=== PATIENT | male | born 1985 | race African-American/Black ===

== ENCOUNTER 2016-11-22 19:58 | Emergency (ER) | payer OTHER ==
[~2016-11-22] VITALS: Ht 175.3 cm; Wt 71.2 kg
[~2016-11-22 19:58] MED LIST: FRESHKOTE15 ML OPH
[2016-11-22 20:22] VITALS: BP 132/77
--- NOTE | 2016-11-22 21:41 | ED GI/GU/ABDOMINAL COMPLAINT ---
History of Present Illness General Chief Complaint: Male Genitourinary Problems Stated Complaint: GROIN PAIN Vital Signs & Intake/Output Vital Signs & Intake/Output Vital Signs Date Time Temp Pulse Resp B/P Pulse O2 O2 Flow FiO2 Ox Delivery Rate 11/22 2021 98.8 75 18 132/77 100 Room Air Allergies Coded Allergies: No Known Allergies (03/23/16) Reconcile Medications Eye Lubricant Combination No.1 (Freshkote) 15 ML DROPS 1 GTT OPH TID irritation eye Triage Note: PT TO ED FOR PENILE PAIN, DENIES ANY DRAINAGE, SORES OR RECENT UNPROTECTED SEX. 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
--- NOTE | 2016-11-22 21:58 | ED GI/GU/ABDOMINAL COMPLAINT ---
History of Present Illness General Chief Complaint: Male Genitourinary Problems Stated Complaint: GROIN PAIN Source: patient Exam Limitations: no limitations Vital Signs & Intake/Output Vital Signs & Intake/Output Vital Signs Date Time Temp Pulse Resp B/P Pulse O2 O2 Flow FiO2 Ox Delivery Rate 11/22 2021 98.8 75 18 132/77 100 Room Air ED Intake and Output 11/23 0000 11/22 1200 Intake Total Output Total Balance Patient 157 lb Weight Allergies Coded Allergies: No Known Allergies (03/23/16) Reconcile Medications Eye Lubricant Combination No.1 (Freshkote) 15 ML DROPS 1 GTT OPH TID irritation eye Triage Note: PT TO ED FOR PENILE PAIN, DENIES ANY DRAINAGE, SORES OR RECENT UNPROTECTED SEX. Triage Nurses Notes Reviewed? yes Onset: Abrupt Duration: day(s): (1) Timing: recent history Quality/Severity: mild No Modifying Factors: none HPI: 31-year-old male comes into emergency room for evaluation of pain to the base of his penis. Patient reports that yesterday morning he woke up with an erection in his left arm hit his penis and he felt the pain. Denies any bruising. Patient reports she's been able to get an erection since then. Denies any burning with urination or urethral discharge. He just wanted to have it checked out to see was concerned. Pain is very mild. (LORRAINE AVERY) Past History Travel History Traveled to [place] past 21 day No Medical History Any Pertinent Medical History? 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 No (LORRAINE AVERY) Review of Systems Review of Systems Constitutional: Reports: no symptoms. EENTM: Reports: no symptoms. Respiratory: Reports: no symptoms. Cardiovascular: Reports: no symptoms. GI: Reports: no symptoms. Genitourinary: Reports: see HPI. Musculoskeletal: Reports: no symptoms. Skin: Reports: no symptoms. Neurological/Psychological: Reports: no symptoms. Hematologic/Endocrine: Reports: no symptoms. Immunologic/Allergic: Reports: no symptoms. All Other Systems: Reviewed and Negative (LORRAINE AVERY) Physical Exam Physical Exam General Appearance: well developed/nourished, no apparent distress, alert Head: atraumatic, normal appearance Eyes: Bilateral: normal appearance. Ears, Nose, Throat, Mouth: hearing grossly normal, moist mucous membrane Neck: normal inspection, full range of motion Respiratory: no respiratory distress Gastrointestinal: soft Male Genitals: no ecchymosis/bruising, normal inspection, no testicular pain, no hernia appreciated, Back: normal inspection Extremities: normal range of motion Neurologic/Psych: awake, alert, oriented x 3 Core Measures ACS in differential dx? No Severe Sepsis Present: No Septic Shock Present: No (LORRAINE AVERY) Progress Differential Diagnosis: ureterolithiasis, urinary retention, urethritis, UTI/ pyelo, penile fracture Plan of Care: 11/22/2016 11:27:51 PM Patient clinically looks well. Nontoxic-appearing. In no apparent distress. Follow-up with primary care doctor if any concerns. No signs of trauma on exam. Patient understands and agrees with plan of care. Initial ED EKG: none (LORRAINE AVERY) Departure Departure Disposition: HOME OR SELF CARE Condition: Stable Clinical Impression Primary Impression: Penile pain Referrals: YAMIL RUIZ MD (PCP/Family) Additional Instructions: Follow-up with your primary care doctor. Return if any testicular pain or any other concerns worsening symptoms. Departure Forms: Customer Survey General Discharge Information (LORRAINE AVERY) PA/WATER TREATMENT PLANT SUPERVISOR Co-Sign Statement Statement: ED Attending supervision documentation- [] I saw and evaluated the patient. I have also reviewed all the pertinent lab results and diagnostic results. I agree with the findings and the plan of care as documented in the PA's/WATER TREATMENT PLANT SUPERVISOR's documentation. [X] I have reviewed the ED Record and agree with the PA's/WATER TREATMENT PLANT SUPERVISOR's documentation. [] Additions or exceptions (if any) to the PAs/WATER TREATMENT PLANT SUPERVISOR's note and plan are summarized below: [] (LORNA LUO,EMMIE)
== END 2016-11-22 22:25 ==
LOC: ERH 19:58
DX: N48.89 Other specified disorders of penis (principal)
CPT/HCPCS: 99282

== ENCOUNTER 2017-10-22 15:55 | Emergency (ER) | payer OTHER ==
[~2017-10-22] VITALS: Ht 180.3 cm; Wt 71.2 kg
[2017-10-22 16:04] VITALS: BP 153/73
--- NOTE | 2017-10-22 17:26 | RADIOLOGY REPORT ---
EXAMINATION: XR KNEE, LEFT CLINICAL INFORMATION: Left knee pain COMPARISON: None TECHNIQUE: Four views of the left knee. FINDINGS: Bones and soft tissues are normal. No fracture or joint effusion. Alignment is anatomic. Joint spaces are well maintained. No abnormal soft tissue calcification. IMPRESSION: Normal left knee.
--- NOTE | 2017-10-22 17:37 | ED UPPER/LOWER EXTREMITY COMPL ---
History of Present Illness General Chief Complaint: Lower Extremity Problems Stated Complaint: L KNEE PAIN Source: patient Exam Limitations: no limitations Vital Signs & Intake/Output Vital Signs & Intake/Output Vital Signs Date Time Temp Pulse Resp B/P B/P Pulse O2 O2 Flow FiO2 Mean Ox Delivery Rate 10/22 1604 98.8 102 18 153/73 97 Room Air Room Air Allergies Coded Allergies: No Known Allergies (03/23/16) Reconcile Medications Eye Lubricant Combination No.1 (Freshkote) 15 ML DROPS 1 GTT OPH TID irritation eye Triage Note: TRIAGE: 32 Y/O MALE PRESENTS C/O INJURY TO LEFT KNEE ON MONDAY - REPORTS PAIN 01/04 - HAS NOT IMPROVED SINCE. DEC;ANGELO MOTRIN/ TYLENOL IN TRIAGE Triage Nurses Notes Reviewed? yes Onset: Abrupt Duration: day(s): (4) Timing: no prior history Severity: moderate Severity Numbers: 5 Pain/Injury Location: Left: Knee. Modifying Factors: Improves With: immobilization. Worsens With: movement. HPI: Patient is a 32-year-old male presenting to the emergency department with chief complaint of left knee pain over The past 4 days. Symptoms started after he slightly hyperextended his left knee. Since then he's had achy throbbing pain gets worse with ambulation. Denies taking anything to help with pain. Denies applying ice to help with pain. No history of similar injuries in the past. Denies numbness or tingling. Pain does not radiate. (Cristina Davidson) Past History Travel History Traveled to [place] past 21 day No Medical History Any Pertinent Medical History? 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 No (Cristina Davidson) Review of Systems Review of Systems Constitutional: Reports: no symptoms. Comments Review of systems: See HPI, All other systems negative. Constitutional, no chills fever or weight loss HEENT: No visual changes no sore throat no congestion Cardiovascular: No chest pain ,palpitation Skin, no jaundice no rashes Respiratory: No dyspnea cough sputum or hemoptysis GI: No nausea no vomiting Muscle skeletal: no back pain, no neck pain, Neurologic: No numbness Immunology: No splenectomy or history of AIDS (Cristina Davidson) Physical Exam Physical Exam General Appearance: well developed/nourished, no apparent distress, alert, awake , comfortable Comments: Well-developed well-nourished person in no acute distress HEENT: Atraumatic, normal cephalic Neck: Normal inspection Cardiovascular: Pedal pulses are 2+ bilaterally. Respiratory: No respiratory distress. Extremity: No edema, mildly tender to palpation over the medial and lateral aspect of the left patella. Negative anterior and posterior drawer test of the left knee. Full range of motion both passively and actively of the left knee without difficulty. No calf pain to palpation of the left lower extremity. No obvious edema or signs of trauma. Neuro: Alert oriented x3, motor sensory normal Skin: No appreciable rash on exposed skin, skin is warm and dry. Psych: Mood and affect is normal, memory and judgment is normal. (Cristina Davidson) Progress Differential Diagnosis: contusion, dislocation, fracture, sprain, tendon injury Plan of Care: Patient informed of negative fracture. Likely muscle strain. Patient treated symptomatically. The knee joint is stable. No signs of edema. Patient will follow-up with his primary care physician if symptoms persist. Educated on these of NSAIDs and icing. Diagnostic Imaging: Viewed by Me: Radiology Read. Discussed w/RAD: Radiology Read. Radiology Impression: no acute abnormality, no fracture, no dislocation, no foreign body seen (Cristina Davidson) Departure Departure Time of Disposition: 1747 Disposition: HOME OR SELF CARE Condition: Stable Clinical Impression Primary Impression: Knee sprain Qualifiers: Encounter type: initial encounter Involved ligament of knee: unspecified ligament Laterality: left Qualified Code: S83.92XA - Sprain of unspecified site of left knee, initial encounter Referrals: Raiza LUO,Caleb Rojo MD,Shawn (PCP/Family) Additional Instructions: FOLLOW UP WITH YOUR PCP CALL TO MAKE APPT. REST, ICE AND ELEVATE. TAKE MOTRIN OR TYLENOL FOR PAIN. Departure Forms: Customer Survey General Discharge Information (Cristina Davidson) PA/PLUMBING ASSEMBLER INSTALLER Co-Sign Statement Statement: ED Attending supervision documentation- [] I saw and evaluated the patient. I have also reviewed all the pertinent lab results and diagnostic results. I agree with the findings and the plan of care as documented in the PA's/PLUMBING ASSEMBLER INSTALLER's documentation. [x] I have reviewed the ED Record and agree with the PA's/PLUMBING ASSEMBLER INSTALLER's documentation. [] Additions or exceptions (if any) to the PAs/PLUMBING ASSEMBLER INSTALLER's note and plan are summarized below: [] (Hiren Nice DO)
== END 2017-10-22 17:51 ==
LOC: ERH 15:55
DX: S83.92XA Sprain of unspecified site of left knee, initial encounter (principal); X50.9XXA Other and unspecified overexertion or strenuous movements or postures, initial encounter; Y93.9 Activity, unspecified; Y92.9 Unspecified place or not applicable
CPT/HCPCS: 73560-LT

== ENCOUNTER 2018-01-01 15:18 | Emergency (ER) | payer OTHER ==
[~2018-01-01] VITALS: Ht 180.3 cm; Wt 70.8 kg
--- NOTE | 2018-01-01 17:59 | ED GI/GU/ABDOMINAL COMPLAINT ---
History of Present Illness General Chief Complaint: Male Genitourinary Problems Stated Complaint: GROIN PAIN Source: patient Exam Limitations: no limitations Vital Signs & Intake/Output Vital Signs & Intake/Output Vital Signs Date Time Temp Pulse Resp B/P B/P Pulse O2 O2 Flow FiO2 Mean Ox Delivery Rate 01/01 1849 98.4 70 18 121/75 100 Room Air 01/01 1537 96.7 71 18 138/87 97 Room Air Allergies Coded Allergies: No Known Allergies (03/23/16) Reconcile Medications Eye Lubricant Combination No.1 (Freshkote) 15 ML DROPS 1 GTT OPH TID irritation eye Triage Note: PT TO ER C/C 11/04 BILATERAL DULL TESTICULAR PAIN. DENIES INJURY OR TRAUMA. DENIES DISCHARGE. DENIES SWELLING. Triage Nurses Notes Reviewed? yes Timing: recent history Quality/Severity: aching Severity Numbers: 1 Radiation: no radiation HPI: Patient is a 32-year-old male who since emergency room stating that on Monday 3 days ago patient woke up with an erection were he was ambulating and accidentally Struck his penile shaft to the corner of a wall resulting in acute onset of pain Patient states that his pain has resolved since that day and has had an erection since with no pain patient is able to urinate since with no pain dysuria discharge denies any testicular pain or swelling and is otherwise without complaints. (Larry Rosas) Past History Travel History Traveled to [place] past 21 day No Medical History Any Pertinent Medical History? 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 No (Larry Rosas) Review of Systems Review of Systems Constitutional: Reports: no symptoms. EENTM: Reports: no symptoms. Respiratory: Reports: no symptoms. Cardiovascular: Reports: no symptoms. GI: Reports: no symptoms. Genitourinary: Reports: see HPI, pain. Musculoskeletal: Reports: no symptoms. Skin: Reports: no symptoms. Neurological/Psychological: Reports: no symptoms. Hematologic/Endocrine: Reports: no symptoms. Immunologic/Allergic: Reports: no symptoms. All Other Systems: Reviewed and Negative (Larry Rosas) Physical Exam Physical Exam General Appearance: no apparent distress, alert, comfortable Head: atraumatic Eyes: Bilateral: normal appearance. Ears, Nose, Throat, Mouth: moist mucous membrane Neck: normal inspection Respiratory: no respiratory distress Gastrointestinal: normal bowel sounds, soft, non-tender Male Genitals: normal genitalia Extremities: normal range of motion Neurologic/Psych: no motor/sensory deficits Skin: intact, normal color, warm/dry Comments: - normal inspection nontender penile shaft no discharge from urethra nontender scrotum and bilateral testicles, cremaster reflex intact Core Measures ACS in differential dx? No Sepsis Present: No Sepsis Focused Exam Completed? No (Larry Rosas) Progress Differential Diagnosis: appendicitis, pancreatitis, prostatitis, perforated viscous, pyelonephritis, STD, testicular torsion, ureterolithiasis, urinary retention, urethritis, UTI/pyelo Plan of Care: Orders Procedure Date/time Status CHLAMYDIA-GC DNA PROBE 01/01 1540 Active URINALYSIS 01/01 1540 Complete Laboratory Tests 01/01/18 1545: Urine Color YEL, Urine Clarity CLEAR, Urine pH 6.0, Ur Specific [place] >= 1.030 , Urine Protein NEG, Urine Ketones NEG, Urine Nitrite NEG, Urine Bilirubin NEG, Urine Urobilinogen 0.2, Ur Leukocyte Esterase NEG, Ur Microscopic EXAM NOT REQUIRED, Urine Hemoglobin NEG, Urine Glucose NEG Microbiology 01/01 1545 URINE ROUT: GC DNA Probe - RECD 01/01 1545 URINE ROUT: Chlamydia DNA Probe (SANTY) - RECD Patient on initial examination was resting complete bedside and has unremarkable physical exam no concerns of testicular torsion differential diagnosis include penile fracture however on exam he has no tenderness upon palpation. Initial ED EKG: none (Larry Rosas) Departure Departure Disposition: HOME OR SELF CARE Condition: Stable Clinical Impression Primary Impression: Contusion of penis Referrals: Shawn Rojo MD (PCP/Family) Additional Instructions: As discussed if symptoms worsen or if YOU develop any new concerning symptoms return to emergency room Departure Forms: Customer Survey General Discharge Information (Larry Rosas) PA/COMPLEX HUMAN RESOURCES MANAGER Co-Sign Statement Statement: ED Attending supervision documentation- [] I saw and evaluated the patient. I have also reviewed all the pertinent lab results and diagnostic results. I agree with the findings and the plan of care as documented in the PA's/COMPLEX HUMAN RESOURCES MANAGER's documentation. [x] I have reviewed the ED Record and agree with the PA's/COMPLEX HUMAN RESOURCES MANAGER's documentation. [] Additions or exceptions (if any) to the PAs/COMPLEX HUMAN RESOURCES MANAGER's note and plan are summarized below: [] (Guzman Mathew DO)
[2018-01-01 18:49] VITALS: BP 121/75
== END 2018-01-01 18:49 ==
LOC: ERH 15:18
DX: S30.21XA Contusion of penis, initial encounter (principal); W22.01XA Walked into wall, initial encounter; Y92.9 Unspecified place or not applicable; Y93.9 Activity, unspecified
CPT/HCPCS: 81003; 87491; 87591

== ENCOUNTER 2018-05-12 05:15 | Emergency (ER) | payer OTHER ==
[~2018-05-12] VITALS: Ht 180.3 cm; Wt 71.2 kg
[2018-05-12 05:21] VITALS: BP 146/84
--- NOTE | 2018-05-12 05:32 | ED GENERAL ADULT ---
History of Present Illness General Chief Complaint: Sore Throat, Dental Pain Stated Complaint: SORE THROAT Source: patient Exam Limitations: no limitations Vital Signs & Intake/Output Vital Signs & Intake/Output Vital Signs Date Time Temp Pulse Resp B/P B/P Pulse O2 O2 Flow FiO2 Mean Ox Delivery Rate 05/12 533 Room Air 05/12 521 97.7 78 18 146/84 98 Room Air Allergies Coded Allergies: No Known Allergies (03/23/16) Reconcile Medications Ibuprofen 600 MG TABLET 1 TAB PO TID PRN PAIN/FEVER with food Polytrim (Polytrim Eye Drops) 10,000 UNIT-1 MG/ML DROPS 2 GTT OPH Q6 conjunctivitis x 7 days Prednisone 50 MG TABLET 1 TAB PO DAILY PHARYNGITIS Triage Note: PT C/O SORE THROAT SINCE MONDAY. PT STATES HE CAN'T SLEEP BECAUSE HIS THROAT IS UNCOMFORTABLE. PT STATES "MY UVULA SEEMS LIKE ITS LOW." PT DENIES ANY OTHER COMPLAINTS. RESPIRATIONS NON-LABORED. SKIN WARM/DRY. A&OX3. Triage Nurses Notes Reviewed? yes Onset: Gradual Duration: day(s): Timing: recent history Injury Environment: home Severity: mild Modifying Factors: Improves With: rest. Associated Symptoms: watery eyes, sore throat HPI: 32 yo gentleman presents with sore throat, watery eyes w/ discharge. He notes, "I have a big uvula... When I get sick it seems to hurt." He asks for antibiotics for his conjunctivitis. He notes no fever. He is able to drink without problem. He is otherwise well. "My daughter had the same thing and I started with my symptoms about 3 days ago. " Past History Travel History Traveled to [place] past 21 day No Medical History Any Pertinent Medical History? 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 No Review of Systems Review of Systems Constitutional: Reports: no symptoms. EENTM: Reports: no symptoms. Respiratory: Reports: no symptoms. Cardiovascular: Reports: no symptoms. GI: Reports: no symptoms. Genitourinary: Reports: no symptoms. Musculoskeletal: Reports: no symptoms. Skin: Reports: no symptoms. Neurological/Psychological: Reports: no symptoms. Hematologic/Endocrine: Reports: no symptoms. Immunologic/Allergic: Reports: no symptoms. All Other Systems: Reviewed and Negative Physical Exam Physical Exam General Appearance: well developed/nourished, no apparent distress Head: atraumatic, normal appearance Eyes: Bilateral: other (mild bilateral injection). Ears, Nose, Throat: mild pharyngeal inflammation, no exudates, no uvular deviation, Neck: normal inspection, supple, full range of motion Respiratory: normal breath sounds, chest non-tender, no respiratory distress, quiet respiration, lungs clear Cardiovascular: regular rate/rhythm Gastrointestinal: normal bowel sounds, soft, non-tender, no organomegaly Back: normal inspection, normal range of motion Extremities: normal inspection, normal capillary refill Neurologic/Psych: no motor/sensory deficits, awake, alert, oriented x 3 Skin: intact, normal color, warm/dry Core Measures ACS in differential dx? No CVA/TIA Diagnosis: No Sepsis Present: No Sepsis Focused Exam Completed? No Progress Differential Diagnoses I considered the following diagnoses in my evaluation of the patient: viral vs bacterial etiology... likely viral Plan of Care: Orders Procedure Date/time Status THROAT CULTURE W/QUICK STREP 05/12 522 Active Current Medications Sig/Milo Start time Last Medication Dose Stop Time Status Admin Ibuprofen 600 MG ONCE ONE 05/12 600 UNVr (Motrin) 05/12 601 Prednisone 40 MG ONCE ONE 05/12 600 UNVr 05/12 601 Initial ED EKG: none Departure Departure Disposition: HOME OR SELF CARE Condition: Stable Clinical Impression Primary Impression: Pharyngitis Secondary Impressions: Conjunctivitis Referrals: Shawn Rojo MD (PCP/Family) Departure Forms: Customer Survey General Discharge Information Prescriptions: Current Visit Scripts Prednisone 1 TAB PO DAILY #3 TAB Ibuprofen 1 TAB PO TID PRN PAIN/FEVER #30 TAB with food Polytrim (Polytrim Eye Drops) 2 GTT OPH Q6 #20 ML x 7 days Critical Care Note Critical Care Note Critical Care Time: non-applicable
[2018-05-12] MEDS ORDERED: IBUPROFEN600 M1 PO ×2 (05:56→05:58)
[2018-05-12] MEDS ORDERED: PREDNISONE50 M1 PO (05:56)
[2018-05-12] MEDS ORDERED: POLYTRIM EYE DR10 ML OPH ×2 (05:57→05:58)
== END 2018-05-12 06:05 ==
LOC: ERH 05:15
DX: J02.9 Acute pharyngitis, unspecified (principal); H10.9 Unspecified conjunctivitis